=== PATIENT | female | born 1965 | race Two or more races ===

== ENCOUNTER 2019-09-26 06:00 | Day surgery (SDC) | payer OTHER ==
[~2019-09-26 06:00] MED LIST: HUM; LANTUS {1, null}; LASIX20 MG PO; RECTICARE30 GM TP; SYNTHROID100 MCG PO; TRAMADOL HCL-AP1 TAB PO; TRIUMEQ TABLET1 EACH PO; VASOTEC10 MG PO; ZOCOR20 MG PO
[2019-09-26] MEDS ORDERED: ULTRACET PO (09:36)
== END 2019-09-26 17:15 | disposition home or self-care (01) ==
LOC: CIR.AMB 06:00 → AMB-ENDOS 11:00 → CERTIFICAD 11:00 → CIR.AMB 17:15
DX: A63.0 Anogenital (venereal) warts (principal)